=== PATIENT | female | born 1995 | race American Indian/Alaskan Native ===

== ENCOUNTER 2019-06-09 14:37 | Inpatient (IN) | payer MEDICAID ==
[2019-06-09] MEDS ORDERED: LACTATED RINGERS 1,000 ML ONE (16:37)
[2019-06-09] MEDS ORDERED: LACTATED RINGERS 500 ML IV ONE (16:53)
[2019-06-09] MEDS ORDERED: MAGNESIUM SULFATE 4 GM/100 ML BAG IV ONE (17:00)
[2019-06-09] MEDS ORDERED: hydrALAZINE 20 MG/1 ML INJ IV PRN (17:00)
[2019-06-09] MEDS: MAGNESIUM SULFATE 40GM/1000ML 40 GM/1,000 ML BAG IV SCH (18:16)
--- NOTE | 2019-06-09 18:19 | Ultrasound Report ---
ULTRASOUND BIOPHYSICAL PROFILE AND LIMITED OB ULTRASOUND INDICATION / CLINICAL INFORMATION: Hypertension and well-being. COMPARISON: None available. FINDINGS: BREATHING MOVEMENT = 2 GROSS BODY MOVEMENT = 2 TONE = 2 QUALITATIVE AMNIOTIC FLUID VOLUME = 2 TOTAL BIOPHYSICAL SCORE = 8/8 AMNIOTIC FLUID INDEX (cm) = 8.5 PRESENTATION: Cephalic. HEART RATE (beats per minute): 141 through 148. IMPRESSION: 1. biophysical profile = 01/27 2. STONE 8.5 cm Signer Name: Shun Padgett MD Signed: 06/09/2019 6:15 PM Workstation Name: [id number]
[2019-06-09 18:40] LABS: Alanine Aminotransferase 15 units/L (7-56); Uric Acid 7.8 mg/dL (3.5-7.6)
[2019-06-09 18:42] LABS: Hematocrit 40.5 % (30.3-42.9); Hemoglobin 13.4 gm/dl (10.1-14.3); Mean Corpuscular HGB Conc 33 % (30-34); Mean Corpuscular Volume 93 fl (79-97); Red Blood Count 4.35 M/mm3 (3.65-5.03); Red Cell Distribution Width 14.2 % (13.2-15.2)
[2019-06-09 19:13] LABS: Platelet Count 147 K/mm3 (140-440)
[2019-06-09 19:16] LABS: Bacteria,Urine 1+ /HPF (Negative); Bilirubin,Urine NEG (Negative); Blood,Urine MOD (Negative); Color,Urine Straw (Yellow); Urobilinogen,Urine < 2.0 mg/dL (<2.0)
[2019-06-09] MEDS: ACETAMINOPHEN 325 MG TAB PO PRN (20:57)
[2019-06-10] MEDS: LACTATED RINGERS 1,000 ML IV SCH ×2 (02:36→20:31)
--- NOTE | 2019-06-10 07:32 | History and Physical Report ---
History of Present Illness Date of examination: 06/10/19 Date of admission: 06/09/2019 Chief complaint: Was admitted for evaluation and management of preeclampsia. History of present illness: Gestation at 37 wks. Was sent in from the office for concerning BPs. Past History - Obstetrical History Expected Date of Delivery: 07/02/19 Actual Gestation: 36 Week(s) 6 Day(s) : 2 Medications and Allergies Allergies Allergy/AdvReac Type Severity Reaction Status Date / Time No Known Allergies Allergy Unverified 06/09/19 16:07 Home Medications Medication Instructions Recorded Confirmed Last Taken Type Vitamin 1 tab PO DAILY 06/09/19 06/09/19 06/08/19 History Active Meds: Active Medications Acetaminophen (Tylenol) 650 mg PO Q4H PRN PRN Reason: Pain MILD(1-3)/Fever >100.5/VILLEGAS Last Admin: 06/09/19 20:57 Dose: 650 mg Documented by: Hydralazine HCl (Apresoline) 20 mg IV Q30MIN PRN PRN Reason: Blood Pressure Last Admin: 06/09/19 18:14 Dose: 20 mg Documented by: Magnesium Sulfate (Magnesium Sulfate 40gm/1000ml) 40 gm in 1,000 mls @ 50 mls/hr IV DIRECT [place] Last Infusion: 06/10/19 02:36 Dose: 1 gm/hr, 25 mls/hr Documented by: Lactated Ringer's (Lactated Ringers) 1,000 mls @ 125 mls/hr IV DIRECT [place] Last Admin: 06/10/19 02:36 Dose: 125 mls/hr Documented by: Labetalol HCl (Labetalol) 200 mg PO Q8HR [place] Last Admin: 06/10/19 07:25 Dose: 200 mg Documented by: Review of Systems All systems: negative - Vital Signs Vital signs: Vital Signs Pulse BP 79 160/112 06/09/19 15:31 06/09/19 15:31 Temp Pulse Resp BP Pulse Ox 97.8 F 82 14 134/85 97 06/10/19 04:25 06/10/19 07:27 06/10/19 04:25 06/10/19 07:26 06/10/19 07:27 - Physical Exam Lungs: Positive: Normal air movement Abdomen: Positive: normal appearance, soft, distention. Negative: tenderness, guarding Extremities: Positive: normal Deep Tendon Reflex Grade: Normal +2 - Obstetrical FHR: category 1 Results Result Diagrams: 06/09/19 17:59 06/09/19 17:59 Abnormal lab results 06/09/19 06/10/19 06/10/19 Range/Units 17:59 00:26 05:24 Uric Acid 7.8 H (3.5-7.6) mg/dL Magnesium 7.00 H 6.80 H (1.7-2.3) mg/dL Lactate Dehydrogenase 272 H (91-180) units/L All other labs normal. Assessment and Plan - Patient Problems (1) with 36 to 37 weeks completed gestation Current Visit: Yes Status: Acute (2) Pre-eclampsia Current Visit: Yes Status: Acute Plan to address problem: Patient was stabilized since admission with hydralazine and labetalol and MgSO4. BPP 8/8 as of 06/09/2019. Delivery at this stage is under consideration and will be discussed with STANISLAV.
--- NOTE | 2019-06-10 10:16 | Progress Note ---
Assessment and Plan - Patient Problems (1) 36 weeks gestation of Current Visit: Yes Status: Acute (2) Pre-eclampsia Current Visit: Yes Status: Acute Qualifiers: Trimester: third trimester Qualified Code(s): O14.93 - Unspecified pre- eclampsia, third trimester Plan to address problem: Continue magnesium sulfate therapy Continue Labetalol 200mg PO TID Continue serial magnesium levels, strict I&Os and hourly DTRs Subjective - Subjective Date of service: 06/10/19 Principal diagnosis: IUP @ 36w6d, Pre-eclampsia Interval history: 23yo G 2 P 0 0 1 0 @ 36w6d admitted yesterday from [facility] for BP management. Initial BPs were 160/112, 147/110, 162/110 and 171/107. PIH labs UA 7.8(H), LDH 272(H), AST 23, ALT 15. 24hr urine pending. Diagnosis of pre-eclampsia made. Magnesium sulfate and antihypertensive therapy. Per APA recommendation, for continued severe range BPs or NR behavior, delivery recommended. Current BPs stable: 134/88, 109/70, 104/65/117/69. On Labetalol 200mg PO TID. Patient re ports headache but denies visual disturbances or RUQ pain. Magnesium level 6.8. Adequate urine output. Reflexes 3+. Dr. Castle notified. APA recommendation about delivery discussed with patient & partner at the bedside as well as the patient's mom and partner's mom over the phone. The pt's mom wants IOL withheld for now since her BPs are stable. Will discuss plan of care and patient's/family's preference with Dr. Castle. Patient reports: movement normal, no loss of fluid, no vaginal bleeding, no contractions Objective - Vital Signs Vital Signs: Vital Signs - 12hr 06/09/19 06/09/19 06/09/19 22:12 22:17 22:22 Temperature Pulse Rate 90 82 87 Respiratory Rate Blood Pressure O2 Sat by Pulse 98 98 99 Oximetry 06/09/19 06/09/19 06/09/19 22:27 22:31 22:32 Temperature Pulse Rate 86 84 86 Respiratory Rate Blood Pressure 108/66 O2 Sat by Pulse 98 98 Oximetry 06/09/19 06/09/19 06/09/19 22:37 22:42 22:47 Temperature Pulse Rate 86 85 92 H Respiratory Rate Blood Pressure O2 Sat by Pulse 98 98 99 Oximetry 06/09/19 06/09/19 06/09/19 22:52 22:57 23:02 Temperature Pulse Rate 86 87 84 Respiratory Rate Blood Pressure 117/70 O2 Sat by Pulse 98 98 99 Oximetry 06/09/19 06/09/19 06/09/19 23:07 23:12 23:17 Temperature Pulse Rate 88 88 88 Respiratory Rate Blood Pressure O2 Sat by Pulse 99 99 99 Oximetry 06/09/19 06/09/19 06/09/19 23:22 23:27 23:31 Temperature Pulse Rate 87 85 83 Respiratory Rate Blood Pressure 123/78 O2 Sat by Pulse 99 98 Oximetry 06/09/19 06/09/19 06/09/19 23:32 23:37 23:42 Temperature Pulse Rate 84 87 89 Respiratory Rate Blood Pressure O2 Sat by Pulse 98 99 99 Oximetry 06/09/19 06/09/19 06/09/19 23:47 23:52 23:53 Temperature Pulse Rate 88 67 85 Respiratory Rate Blood Pressure 121/78 O2 Sat by Pulse 100 84 Oximetry 06/09/19 06/09/19 06/09/19 23:55 23:57 23:59 Temperature Pulse Rate 89 84 89 Respiratory Rate Blood Pressure 121/78 O2 Sat by Pulse 95 91 Oximetry 06/10/19 06/10/19 06/10/19 00:01 00:02 00:07 Temperature Pulse Rate 71 74 74 Respiratory Rate Blood Pressure 136/80 O2 Sat by Pulse 99 98 Oximetry 06/10/19 06/10/19 06/10/19 00:12 00:17 00:20 Temperature 98.1 F Pulse Rate 75 74 Respiratory Rate Blood Pressure O2 Sat by Pulse 98 98 Oximetry 06/10/19 06/10/19 06/10/19 00:22 00:27 00:31 Temperature Pulse Rate 75 81 77 Respiratory Rate Blood Pressure 121/80 O2 Sat by Pulse 97 98 Oximetry 06/10/19 06/10/19 06/10/19 00:32 00:37 00:42 Temperature Pulse Rate 82 76 77 Respiratory Rate Blood Pressure O2 Sat by Pulse 98 98 97 Oximetry 06/10/19 06/10/19 06/10/19 00:47 00:52 00:57 Temperature Pulse Rate 77 75 77 Respiratory Rate Blood Pressure O2 Sat by Pulse 97 97 98 Oximetry 06/10/19 06/10/19 06/10/19 01:01 01:02 01:07 Temperature Pulse Rate 77 77 77 Respiratory Rate Blood Pressure 136/74 O2 Sat by Pulse 97 96 Oximetry 06/10/19 06/10/19 06/10/19 01:12 01:17 01:22 Temperature Pulse Rate 83 76 79 Respiratory Rate Blood Pressure O2 Sat by Pulse 97 96 97 Oximetry 06/10/19 06/10/19 06/10/19 01:27 01:31 01:32 Temperature Pulse Rate 76 78 79 Respiratory Rate Blood Pressure 129/72 O2 Sat by Pulse 96 97 Oximetry 06/10/19 06/10/19 06/10/19 01:37 01:42 01:47 Temperature Pulse Rate 75 77 77 Respiratory Rate Blood Pressure O2 Sat by Pulse 96 97 97 Oximetry 06/10/19 06/10/19 06/10/19 01:52 01:57 02:01 Temperature Pulse Rate 76 75 81 Respiratory Rate Blood Pressure 123/78 O2 Sat by Pulse 96 97 Oximetry 06/10/19 06/10/19 06/10/19 02:02 02:07 02:12 Temperature Pulse Rate 77 79 75 Respiratory Rate Blood Pressure O2 Sat by Pulse 97 98 97 Oximetry 06/10/19 06/10/19 06/10/19 02:17 02:22 02:27 Temperature Pulse Rate 82 80 79 Respiratory Rate Blood Pressure O2 Sat by Pulse 99 98 98 Oximetry 06/10/19 06/10/19 06/10/19 02:31 02:32 02:37 Temperature Pulse Rate 77 79 83 Respiratory Rate Blood Pressure 112/70 O2 Sat by Pulse 99 99 Oximetry 06/10/19 06/10/19 06/10/19 02:42 02:47 02:52 Temperature Pulse Rate 78 82 78 Respiratory Rate Blood Pressure O2 Sat by Pulse 98 98 98 Oximetry 06/10/19 06/10/19 06/10/19 02:57 03:01 03:02 Temperature Pulse Rate 78 77 79 Respiratory Rate Blood Pressure 110/69 O2 Sat by Pulse 97 97 Oximetry 06/10/19 06/10/19 06/10/19 03:07 03:12 03:17 Temperature Pulse Rate 77 77 84 Respiratory Rate Blood Pressure O2 Sat by Pulse 97 97 97 Oximetry 06/10/19 06/10/19 06/10/19 03:22 03:27 03:31 Temperature Pulse Rate 78 78 77 Respiratory Rate Blood Pressure 111/70 O2 Sat by Pulse 97 97 Oximetry 06/10/19 06/10/19 06/10/19 03:32 03:37 03:42 Temperature Pulse Rate 77 79 78 Respiratory Rate Blood Pressure O2 Sat by Pulse 97 97 97 Oximetry 06/10/19 06/10/19 06/10/19 03:47 03:52 03:57 Temperature Pulse Rate 78 82 77 Respiratory Rate Blood Pressure O2 Sat by Pulse 97 97 97 Oximetry 06/10/19 06/10/19 06/10/19 04:01 04:02 04:07 Temperature Pulse Rate 78 76 80 Respiratory Rate Blood Pressure 116/69 O2 Sat by Pulse 97 97 Oximetry 06/10/19 06/10/19 06/10/19 04:12 04:17 04:22 Temperature Pulse Rate 77 78 78 Respiratory Rate Blood Pressure O2 Sat by Pulse 97 97 97 Oximetry 06/10/19 06/10/19 06/10/19 04:25 04:27 04:31 Temperature 97.8 F Pulse Rate 85 80 Respiratory 14 Rate Blood Pressure 121/79 O2 Sat by Pulse 97 Oximetry 06/10/19 06/10/19 06/10/19 04:32 04:37 04:42 Temperature Pulse Rate 81 84 85 Respiratory Rate Blood Pressure O2 Sat by Pulse 98 98 97 Oximetry 06/10/19 06/10/19 06/10/19 04:47 04:52 04:57 Temperature Pulse Rate 82 79 78 Respiratory Rate Blood Pressure O2 Sat by Pulse 99 99 98 Oximetry 06/10/19 06/10/19 06/10/19 05:01 05:02 05:07 Temperature Pulse Rate 79 80 80 Respiratory Rate Blood Pressure 109/70 O2 Sat by Pulse 98 98 Oximetry 06/10/19 06/10/19 06/10/19 05:12 05:17 05:22 Temperature Pulse Rate 86 76 83 Respiratory Rate Blood Pressure O2 Sat by Pulse 98 99 99 Oximetry 06/10/19 06/10/19 06/10/19 05:27 05:32 05:37 Temperature Pulse Rate 82 81 83 Respiratory Rate Blood Pressure O2 Sat by Pulse 99 99 97 Oximetry 06/10/19 06/10/19 06/10/19 05:42 05:46 05:47 Temperature Pulse Rate 80 85 78 Respiratory Rate Blood Pressure O2 Sat by Pulse 98 92 98 Oximetry 06/10/19 06/10/19 06/10/19 05:52 05:57 06:01 Temperature Pulse Rate 77 75 73 Respiratory Rate Blood Pressure 125/85 O2 Sat by Pulse 98 98 Oximetry 06/10/19 06/10/19 06/10/19 06:02 06:07 06:12 Temperature Pulse Rate 74 75 75 Respiratory Rate Blood Pressure O2 Sat by Pulse 98 98 97 Oximetry 06/10/19 06/10/19 06/10/19 06:17 06:22 06:27 Temperature Pulse Rate 74 75 75 Respiratory Rate Blood Pressure O2 Sat by Pulse 97 96 96 Oximetry 06/10/19 06/10/19 06/10/19 06:31 06:32 06:37 Temperature Pulse Rate 72 75 75 Respiratory Rate Blood Pressure 127/79 O2 Sat by Pulse 96 96 Oximetry 06/10/19 06/10/19 06/10/19 06:42 06:47 06:52 Temperature Pulse Rate 75 75 73 Respiratory Rate Blood Pressure O2 Sat by Pulse 96 96 96 Oximetry 06/10/19 06/10/19 06/10/19 06:57 07:01 07:02 Temperature Pulse Rate 74 75 75 Respiratory Rate Blood Pressure 127/82 O2 Sat by Pulse 96 97 Oximetry 06/10/19 06/10/19 06/10/19 07:07 07:12 07:17 Temperature Pulse Rate 78 83 74 Respiratory Rate Blood Pressure O2 Sat by Pulse 97 96 96 Oximetry 06/10/19 06/10/19 06/10/19 07:22 07:25 07:26 Temperature Pulse Rate 75 82 76 Respiratory Rate Blood Pressure 134/85 134/85 O2 Sat by Pulse 96 Oximetry 06/10/19 06/10/19 06/10/19 07:27 07:32 07:37 Temperature Pulse Rate 82 75 81 Respiratory Rate Blood Pressure 126/76 O2 Sat by Pulse 97 99 99 Oximetry 06/10/19 06/10/19 06/10/19 07:42 07:47 07:52 Temperature Pulse Rate 77 76 76 Respiratory Rate Blood Pressure O2 Sat by Pulse 99 99 99 Oximetry 06/10/19 06/10/19 06/10/19 07:57 08:02 08:03 Temperature Pulse Rate 77 76 74 Respiratory Rate Blood Pressure 112/71 O2 Sat by Pulse 99 98 Oximetry 06/10/19 06/10/19 06/10/19 08:07 08:12 08:17 Temperature Pulse Rate 76 76 84 Respiratory Rate Blood Pressure O2 Sat by Pulse 98 98 98 Oximetry 06/10/19 06/10/19 06/10/19 08:22 08:23 08:27 Temperature Pulse Rate 75 78 80 Respiratory Rate Blood Pressure 120/70 O2 Sat by Pulse 98 98 Oximetry 06/10/19 06/10/19 06/10/19 08:31 08:32 08:33 Temperature Pulse Rate 87 82 82 Respiratory Rate Blood Pressure 117/69 O2 Sat by Pulse 97 94 Oximetry 06/10/19 06/10/19 06/10/19 08:37 08:42 08:47 Temperature Pulse Rate 83 81 80 Respiratory Rate Blood Pressure O2 Sat by Pulse 98 97 98 Oximetry 06/10/19 06/10/19 06/10/19 08:52 08:57 09:02 Temperature Pulse Rate 79 87 79 Respiratory Rate Blood Pressure 104/65 O2 Sat by Pulse 97 97 98 Oximetry 06/10/19 06/10/19 06/10/19 09:07 09:12 09:17 Temperature Pulse Rate 78 83 78 Respiratory Rate Blood Pressure O2 Sat by Pulse 97 98 97 Oximetry 06/10/19 06/10/19 06/10/19 09:22 09:27 09:31 Temperature Pulse Rate 78 77 78 Respiratory Rate Blood Pressure 109/70 O2 Sat by Pulse 97 97 Oximetry 06/10/19 06/10/19 06/10/19 09:32 09:37 09:42 Temperature Pulse Rate 78 85 86 Respiratory Rate Blood Pressure O2 Sat by Pulse 97 97 96 Oximetry 06/10/19 06/10/19 06/10/19 09:47 09:52 09:57 Temperature Pulse Rate 89 82 88 Respiratory Rate Blood Pressure O2 Sat by Pulse 96 97 97 Oximetry 06/10/19 06/10/19 10:02 10:07 Temperature Pulse Rate 82 87 Respiratory Rate Blood Pressure 134/88 O2 Sat by Pulse 97 97 Oximetry - Exam FHR: auscultation normal, category 1 FHR comments: baseline 120, minimal variability, no accels, no decels Uterine Contraction Monitor Mode: External Cervical Dilatation: 1 Cervical Effacement Percentage: 30 station: -3 Uterine Contraction Pattern: Absent Extremities: normal Deep Tendon Reflex Grade: Normal but brisk +3 - Labs Labs: Abnormal Labs 06/09/19 06/10/19 06/10/19 17:59 00:26 05:24 Uric Acid 7.8 H Magnesium 7.00 H 6.80 H Lactate Dehydrogenase 272 H Laboratory Results - last 24 hr 06/09/19 06/09/19 06/09/19 17:59 17:59 17:59 WBC 7.8 RBC 4.35 Hgb 13.4 Hct 40.5 MCV 93 MCH 31 MCHC 33 RDW 14.2 Plt Count 147 Creatinine 1.2 Estimated GFR > 60 Uric Acid 7.8 H Magnesium AST 23 ALT 15 Lactate Dehydrogenase 272 H Urine Color Straw Urine Turbidity Clear Urine pH 7.0 Ur Specific [place] 1.008 Urine Protein 100 mg/dl Urine Glucose (UA) Neg Urine Ketones Neg Urine Blood Mod Urine Nitrite Neg Urine Bilirubin Neg Urine Urobilinogen < 2.0 Ur Leukocyte Esterase Neg Urine WBC (Auto) 1.0 Urine RBC (Auto) 2.0 U Epithel Cells (Auto) 1.0 Urine Bacteria (Auto) 1+ Blood Type Antibody Screen 06/09/19 06/10/19 06/10/19 19:40 00:26 05:24 WBC RBC Hgb Hct MCV MCH MCHC RDW Plt Count Creatinine Estimated GFR Uric Acid Magnesium 7.00 H 6.80 H AST ALT Lactate Dehydrogenase Urine Color Urine Turbidity Urine pH Ur Specific [place] Urine Protein Urine Glucose (UA) Urine Ketones Urine Blood Urine Nitrite Urine Bilirubin Urine Urobilinogen Ur Leukocyte Esterase Urine WBC (Auto) Urine RBC (Auto) U Epithel Cells (Auto) Urine Bacteria (Auto) Blood Type O POSITIVE Antibody Screen Negative
[2019-06-10] MEDS ORDERED: ONDANSETRON 4 MG/2 ML INJ IV PRN (10:28)
[2019-06-10] MEDS ORDERED: LIDOCAINE (2%) 20 MG/1 ML VIAL 20 ML MDV INFILTRATI ONE (21:11)
[2019-06-10] MEDS ORDERED: ePHEDrine SULFATE 50 MG/1 ML INJ IV PRN (21:11)
[2019-06-10] MEDS ORDERED: TERBUTALINE 1 MG/1 ML INJ SUB-Q PRN (21:11)
--- NOTE | 2019-06-10 21:45 | Progress Note ---
Assessment and Plan A: at 35 3/7 weeks. Preeclampsia with severe features. P: Magnesium Sulfate. Celestone for FLM. Continuous EFM. Cervical ripening and induction of labor. Discussed with patient risks and benefits of cervical ripening and induction of labor. Patient consented to IOL. Consulted with Dr. Castle re: this patient and he states he agrees with induction of labor due to preeclampsia with severe features. Subjective - Subjective Date of service: 06/10/19 Principal diagnosis: IUP @ 35w3d, Pre-eclampsia Interval history: Assumed care of patient. at 35 3/7 weeks. Preelampsia with severe features. Patient reports headache. BPs are elevated, some in severe range. Patient is receiving po Labetalol. Patient reports good movement. She denies LOF or VB. Patient reports: movement normal, no loss of fluid, no vaginal bleeding, no contractions Objective - Vital Signs Vital Signs: Vital Signs - 12hr 06/10/19 06/10/19 06/10/19 09:42 09:47 09:52 Temperature Pulse Rate 86 89 82 Respiratory Rate Blood Pressure Blood Pressure [Left] O2 Sat by Pulse 96 96 97 Oximetry 06/10/19 06/10/19 06/10/19 09:57 10:02 10:07 Temperature Pulse Rate 88 82 87 Respiratory Rate Blood Pressure 134/88 Blood Pressure [Left] O2 Sat by Pulse 97 97 97 Oximetry 06/10/19 06/10/19 06/10/19 10:12 10:17 10:20 Temperature Pulse Rate 84 83 82 Respiratory 18 Rate Blood Pressure Blood Pressure 124/88 [Left] O2 Sat by Pulse 98 99 98 Oximetry 06/10/19 06/10/19 06/10/19 10:22 10:27 10:31 Temperature Pulse Rate 85 86 84 Respiratory Rate Blood Pressure 130/89 Blood Pressure [Left] O2 Sat by Pulse 98 98 Oximetry 06/10/19 06/10/19 06/10/19 10:32 10:37 10:42 Temperature Pulse Rate 87 83 87 Respiratory Rate Blood Pressure Blood Pressure [Left] O2 Sat by Pulse 97 98 98 Oximetry 06/10/19 06/10/19 06/10/19 10:47 10:52 10:57 Temperature Pulse Rate 89 82 89 Respiratory Rate Blood Pressure Blood Pressure [Left] O2 Sat by Pulse 96 99 97 Oximetry 12/06/10/19 06/10/19 11:00 11:02 11:07 Temperature Pulse Rate 88 79 81 Respiratory 16 Rate Blood Pressure 130/83 Blood Pressure 130/83 [Left] O2 Sat by Pulse 94 94 100 Oximetry 06/10/19 06/10/19 06/10/19 11:12 11:17 11:22 Temperature Pulse Rate 85 82 84 Respiratory Rate Blood Pressure Blood Pressure [Left] O2 Sat by Pulse 99 99 99 Oximetry 06/10/19 06/10/19 06/10/19 11:27 11:30 11:31 Temperature Pulse Rate 83 81 81 Respiratory 16 Rate Blood Pressure 126/83 Blood Pressure 126/83 [Left] O2 Sat by Pulse 99 98 Oximetry 06/10/19 06/10/19 06/10/19 11:32 11:37 11:42 Temperature Pulse Rate 83 85 84 Respiratory Rate Blood Pressure Blood Pressure [Left] O2 Sat by Pulse 98 99 99 Oximetry 06/10/19 06/10/19 06/10/19 11:47 11:52 11:57 Temperature Pulse Rate 82 83 83 Respiratory Rate Blood Pressure Blood Pressure [Left] O2 Sat by Pulse 99 99 99 Oximetry 06/10/19 06/10/19 06/10/19 12:00 12:01 12:02 Temperature Pulse Rate 82 83 Respiratory 18 Rate Blood Pressure 127/83 Blood Pressure [Left] O2 Sat by Pulse 99 99 Oximetry 06/10/19 06/10/19 06/10/19 12:07 12:12 12:16 Temperature Pulse Rate 82 75 59 L Respiratory Rate Blood Pressure Blood Pressure [Left] O2 Sat by Pulse 97 98 91 Oximetry 06/10/19 06/10/19 06/10/19 12:17 12:22 12:27 Temperature Pulse Rate 76 77 69 Respiratory Rate Blood Pressure Blood Pressure [Left] O2 Sat by Pulse 96 99 99 Oximetry 06/10/19 06/10/19 06/10/19 12:30 12:31 12:32 Temperature 97.8 F Pulse Rate 71 71 78 Respiratory 20 Rate Blood Pressure 134/91 Blood Pressure 134/91 [Left] O2 Sat by Pulse 98 98 Oximetry 06/10/19 06/10/19 06/10/19 12:37 12:42 12:47 Temperature Pulse Rate 72 78 78 Respiratory Rate Blood Pressure Blood Pressure [Left] O2 Sat by Pulse 97 98 98 Oximetry 06/10/19 06/10/19 06/10/19 12:52 12:57 13:01 Temperature Pulse Rate 72 75 75 Respiratory Rate Blood Pressure 147/96 Blood Pressure [Left] O2 Sat by Pulse 98 97 Oximetry 06/10/19 06/10/19 06/10/19 13:02 13:07 13:12 Temperature Pulse Rate 82 78 77 Respiratory Rate Blood Pressure Blood Pressure [Left] O2 Sat by Pulse 98 95 97 Oximetry 06/10/19 06/10/19 06/10/19 13:17 13:22 13:25 Temperature Pulse Rate 77 81 84 Respiratory Rate Blood Pressure Blood Pressure [Left] O2 Sat by Pulse 98 97 92 Oximetry 06/10/19 06/10/19 06/10/19 13:27 13:31 13:32 Temperature Pulse Rate 73 76 83 Respiratory Rate Blood Pressure 127/89 Blood Pressure [Left] O2 Sat by Pulse 99 100 Oximetry 06/10/19 06/10/19 06/10/19 13:37 13:42 13:47 Temperature Pulse Rate 79 78 82 Respiratory Rate Blood Pressure Blood Pressure [Left] O2 Sat by Pulse 99 97 97 Oximetry 06/10/19 06/10/19 06/10/19 13:52 13:57 14:02 Temperature Pulse Rate 82 79 75 Respiratory Rate Blood Pressure 128/84 Blood Pressure [Left] O2 Sat by Pulse 98 98 98 Oximetry 06/10/19 06/10/19 06/10/19 14:07 14:12 14:17 Temperature Pulse Rate 76 77 75 Respiratory Rate Blood Pressure Blood Pressure [Left] O2 Sat by Pulse 99 99 99 Oximetry 06/10/19 06/10/19 06/10/19 14:22 14:27 14:31 Temperature Pulse Rate 76 76 78 Respiratory Rate Blood Pressure 122/78 Blood Pressure [Left] O2 Sat by Pulse 99 99 Oximetry 06/10/19 06/10/19 06/10/19 14:32 14:37 14:42 Temperature Pulse Rate 76 76 83 Respiratory Rate Blood Pressure Blood Pressure [Left] O2 Sat by Pulse 99 99 98 Oximetry 06/10/19 06/10/19 06/10/19 14:47 14:52 14:57 Temperature Pulse Rate 71 70 72 Respiratory Rate Blood Pressure Blood Pressure [Left] O2 Sat by Pulse 97 97 97 Oximetry 06/10/19 06/10/19 06/10/19 15:01 15:02 15:07 Temperature Pulse Rate 86 72 69 Respiratory Rate Blood Pressure 125/83 Blood Pressure [Left] O2 Sat by Pulse 98 98 Oximetry 06/10/19 06/10/19 06/10/19 15:12 15:17 15:22 Temperature Pulse Rate 74 73 81 Respiratory Rate Blood Pressure Blood Pressure [Left] O2 Sat by Pulse 97 97 98 Oximetry 06/10/19 06/10/19 06/10/19 15:27 15:32 15:37 Temperature Pulse Rate 73 80 75 Respiratory Rate Blood Pressure 129/86 Blood Pressure [Left] O2 Sat by Pulse 97 98 98 Oximetry 06/10/19 06/10/19 06/10/19 15:42 15:47 15:52 Temperature Pulse Rate 77 81 88 Respiratory Rate Blood Pressure Blood Pressure [Left] O2 Sat by Pulse 98 96 98 Oximetry 06/10/19 06/10/19 06/10/19 15:57 16:01 16:02 Temperature Pulse Rate 85 81 81 Respiratory Rate Blood Pressure 122/85 Blood Pressure [Left] O2 Sat by Pulse 96 98 Oximetry 06/10/19 06/10/19 06/10/19 16:07 16:12 16:17 Temperature Pulse Rate 86 85 80 Respiratory Rate Blood Pressure Blood Pressure [Left] O2 Sat by Pulse 98 99 99 Oximetry 06/10/19 06/10/19 06/10/19 16:22 16:27 16:31 Temperature Pulse Rate 83 89 73 Respiratory Rate Blood Pressure Blood Pressure [Left] O2 Sat by Pulse 99 98 93 Oximetry 06/10/19 06/10/19 06/10/19 16:36 16:37 16:42 Temperature Pulse Rate 84 90 Respiratory Rate Blood Pressure Blood Pressure [Left] O2 Sat by Pulse 92 99 99 Oximetry 06/10/19 06/10/19 06/10/19 16:47 16:52 16:57 Temperature Pulse Rate 84 83 85 Respiratory Rate Blood Pressure Blood Pressure [Left] O2 Sat by Pulse 99 99 99 Oximetry 06/10/19 06/10/19 06/10/19 17:01 17:02 17:07 Temperature Pulse Rate 80 83 86 Respiratory Rate Blood Pressure 121/72 Blood Pressure [Left] O2 Sat by Pulse 99 99 Oximetry 06/10/19 06/10/19 06/10/19 17:12 17:17 17:22 Temperature Pulse Rate 84 84 81 Respiratory Rate Blood Pressure Blood Pressure [Left] O2 Sat by Pulse 100 99 99 Oximetry 06/10/19 06/10/19 06/10/19 17:27 17:31 17:32 Temperature Pulse Rate 85 81 82 Respiratory Rate Blood Pressure 122/74 Blood Pressure [Left] O2 Sat by Pulse 99 99 Oximetry 06/10/19 06/10/19 06/10/19 17:37 17:42 17:47 Temperature Pulse Rate 85 84 81 Respiratory Rate Blood Pressure Blood Pressure [Left] O2 Sat by Pulse 99 100 99 Oximetry 06/10/19 06/10/19 06/10/19 17:52 17:57 18:01 Temperature Pulse Rate 83 85 85 Respiratory Rate Blood Pressure 127/83 Blood Pressure [Left] O2 Sat by Pulse 99 99 Oximetry 06/10/19 06/10/19 06/10/19 18:02 18:07 18:12 Temperature Pulse Rate 84 84 86 Respiratory Rate Blood Pressure Blood Pressure [Left] O2 Sat by Pulse 99 99 99 Oximetry 06/10/19 06/10/19 06/10/19 18:17 18:22 18:27 Temperature Pulse Rate 90 89 79 Respiratory Rate Blood Pressure Blood Pressure [Left] O2 Sat by Pulse 99 99 99 Oximetry 06/10/19 06/10/19 06/10/19 18:31 18:32 18:37 Temperature Pulse Rate 81 88 84 Respiratory Rate Blood Pressure 133/84 Blood Pressure [Left] O2 Sat by Pulse 100 99 Oximetry 06/10/19 06/10/19 06/10/19 18:42 18:47 18:52 Temperature Pulse Rate 78 89 85 Respiratory Rate Blood Pressure Blood Pressure [Left] O2 Sat by Pulse 100 100 99 Oximetry 06/10/19 06/10/19 06/10/19 18:57 19:01 19:02 Temperature Pulse Rate 78 78 81 Respiratory Rate Blood Pressure 124/83 Blood Pressure [Left] O2 Sat by Pulse 99 100 Oximetry 06/10/19 06/10/19 06/10/19 19:07 19:12 19:17 Temperature Pulse Rate 85 87 86 Respiratory Rate Blood Pressure Blood Pressure [Left] O2 Sat by Pulse 99 97 97 Oximetry 06/10/19 06/10/19 06/10/19 19:22 19:27 19:32 Temperature Pulse Rate 88 86 88 Respiratory Rate Blood Pressure Blood Pressure [Left] O2 Sat by Pulse 97 97 99 Oximetry 06/10/19 06/10/19 06/10/19 19:33 19:37 19:42 Temperature Pulse Rate 82 85 81 Respiratory Rate Blood Pressure 170/96 Blood Pressure [Left] O2 Sat by Pulse 98 99 Oximetry 06/10/19 06/10/19 06/10/19 19:47 19:52 19:57 Temperature Pulse Rate 89 83 77 Respiratory Rate Blood Pressure Blood Pressure [Left] O2 Sat by Pulse 100 99 99 Oximetry 06/10/19 06/10/19 06/10/19 20:01 20:02 20:07 Temperature Pulse Rate 83 89 86 Respiratory Rate Blood Pressure 153/97 Blood Pressure [Left] O2 Sat by Pulse 100 99 Oximetry 06/10/19 06/10/19 06/10/19 20:12 20:17 20:22 Temperature Pulse Rate 85 83 86 Respiratory Rate Blood Pressure Blood Pressure [Left] O2 Sat by Pulse 100 98 98 Oximetry 06/10/19 06/10/19 06/10/19 20:27 20:28 20:31 Temperature Pulse Rate 85 86 86 Respiratory Rate Blood Pressure 153/97 134/99 Blood Pressure [Left] O2 Sat by Pulse 98 Oximetry 06/10/19 06/10/19 06/10/19 20:32 20:37 20:42 Temperature Pulse Rate 81 74 84 Respiratory Rate Blood Pressure Blood Pressure [Left] O2 Sat by Pulse 100 82 L 93 Oximetry 06/10/19 06/10/19 06/10/19 20:47 21:01 21:31 Temperature Pulse Rate 85 77 86 Respiratory Rate Blood Pressure 131/95 163/88 Blood Pressure [Left] O2 Sat by Pulse 99 Oximetry - Exam Abdomen: Present: normal appearance, soft. Absent: distention, tenderness, guarding, rigidity Uterus: Present: normal, fundal height above umbilicus. Absent: tenderness Uterine Contraction Monitor Mode: External Cervical Dilatation: 1.5 Cervical Effacement Percentage: 70 station: 0 Uterine Contraction Pattern: Absent - Labs Labs: Abnormal Labs 06/09/19 06/10/19 06/10/19 17:59 00:26 05:24 Uric Acid 7.8 H Magnesium 7.00 H 6.80 H Lactate Dehydrogenase 272 H Ur Total Protein 24 Hr Urine Total Protein 06/10/19 06/10/19 06/10/19 10:10 19:00 Unknown Uric Acid Magnesium 6.20 H 5.90 H Lactate Dehydrogenase Ur Total Protein 24 Hr 3861.00 H Urine Total Protein 143 H Laboratory Results - last 24 hr 06/10/19 06/10/19 06/10/19 00:26 05:24 10:10 Magnesium 7.00 H 6.80 H 6.20 H Urine Total Volume Ur Total Protein 24 Hr Urine Total Protein 06/10/19 06/10/19 19:00 Unknown Magnesium 5.90 H Urine Total Volume 2700 Ur Total Protein 24 Hr 3861.00 H Urine Total Protein 143 H
[2019-06-10] MEDS ORDERED: OXYTOCIN 20 UNIT/1000ML DRIP 20 UNITS/1,000 ML BAG IV SCH (22:00)
[2019-06-10] MEDS ORDERED: BETAMET ACET/BETAMET NA PH 6 MG/ML INJ 5 ML MDV IM SCH (22:00)
[2019-06-10] MEDS ORDERED: OXYTOCIN DRIP 30 UNITS/500 ML BAG IV SCH (22:00)
[2019-06-10 22:18] LABS: Hematocrit 37.4 % (30.3-42.9); Hemoglobin 12.6 gm/dl (10.1-14.3); Mean Corpuscular HGB Conc 34 % (30-34); Mean Corpuscular Volume 93 fl (79-97); Red Blood Count 4.03 M/mm3 (3.65-5.03); Red Cell Distribution Width 14.7 % (13.2-15.2)
[2019-06-10 22:19] LABS: Platelet Count 166 K/mm3 (140-440)
[2019-06-11] MEDS: LACTATED RINGERS 1,000 ML IV SCH (06:12)
--- NOTE | 2019-06-11 11:11 | Event Note ---
Date: 06/11/19 Will keep EDC of 07/02/19 giving her EGA of 37 weeks today. chart has a note saying she was 11.2 weeks on 12/13- which gives EDC of 07/02. Plus pt has been told during the preg that 07/02 is her EDC. BP - stable. See vitals in EMR FHT- No significant decel, mod LTV VE- /-2, AROM clear. A/P- Stable with IOL for preeclampsia. Resume pitocin. Expectant care. Cont mag.
--- NOTE | 2019-06-11 12:38 | Event Note ---
Date: 06/11/19 Pit at 4Mu was tolerated well by fetus with ctxs around q4-5. Once pit went up to 6mU, pt with decels after each ctx. Mod LTV still noted though. Accels still noted. Decels resolved once pt turned off. Options d/w, in particular the concern that if she is having decels this early in the labor/induction process, that they are likely going to worsen later on. But FHT is stable currently without pit. Pt opts to try pit again and if the problem recurs, will likely be needed. All questions answered.
[2019-06-11] MEDS ORDERED: METOCLOPRAMIDE 10 MG/2 ML INJ IV ONE (14:04)
[2019-06-11] MEDS ORDERED: FAMOTIDINE 20 MG/2 ML INJ IV ONE (14:04)
[2019-06-11] MEDS ORDERED: BICITRA ORAL LIQD 30ML PO ONE (14:04)
--- NOTE | 2019-06-11 14:10 | Event Note ---
Date: 06/11/19 Pitocin was turned off again as pt had decels after ctxs after the pitocin was restarted. VE- no change. Still /%. As a result of NRFHT remote from delivery, pt agreed to and consented LTCS. Risks, benefits and alternatives d/w pt. All questions answered.
[2019-06-11] MEDS ORDERED: HYDROmorphone 1 MG/1 ML INJ IV PRN ×2 (14:11)
[2019-06-11] MEDS ORDERED: PROMETHAZINE 25 MG TAB PO PRN (14:11)
[2019-06-11] MEDS ORDERED: ONDANSETRON 4 MG/2 ML INJ IV PRN (14:11)
[2019-06-11] MEDS ORDERED: NALOXONE 0.4 MG/1 ML INJ IV PRN ×2 (14:11→16:01)
[2019-06-11] MEDS ORDERED: PROMETHAZINE 25 MG RECT SUPP PR PRN (14:11)
--- NOTE | 2019-06-11 14:11 | Anesthesia Consultation ---
Anesthesia Consult and Med Hx Date of service: 06/11/19 - Airway Anesthetic Teeth Evaluation: Good ROM Head & Neck: Adequate Mental/Hyoid Distance: Adequate Mallampati Class: Class II Intubation Access Assessment: Good - Pulmonary Exam CTA: Yes - Cardiac Exam Cardiac Exam: RRR - Pre-Operative Health Status ASA Pre-Surgery Classification: ASA2, Emergency Proposed Anesthetic Plan: Spinal - Pulmonary Hx Asthma: No - Cardiovascular System Hx Hypertension: Yes (PIH/Pre-E) - Other Systems Hx Alcohol Use: Yes (social use)
--- NOTE | 2019-06-11 14:12 | Anesthesia Day of Surgery ---
Anesthesia Day of Surgery - Day of Surgery Patient Examined: Yes Patient H&P Reviewed: Yes Patient is NPO: Yes
[2019-06-11] MEDS ORDERED: DEXMEDETOMIDINE 200 MCG/2 ML VIAL IV ONE (14:22)
[2019-06-11] MEDS ORDERED: fentaNYL-BUPIV 2 MCG/ML-0.125% 200 MCG/100 ML BAG EPIDURAL SCH (15:00)
[2019-06-11] MEDS ORDERED: ceFAZolin/Water 2 GM/20 ML 2 GM/20 ML SYRINGE IV NR (15:00)
[2019-06-11] MEDS ORDERED: OXYTOCIN 20 UNIT/1000ML DRIP 20 UNITS/1,000 ML BAG IV SCH ×2 (15:00→17:00)
[2019-06-11] MEDS ORDERED: LACTATED RINGERS 1,000 ML IV SCH (15:00)
[2019-06-11] MEDS ORDERED: ceFAZolin/STERILE WATER 2 GM/20 ML SYRINGE IV ONE (15:12)
[2019-06-11] MEDS ORDERED: PHENYLEPHRINE/NS 1,000 MCG/10 ML SYRINGE (OR USE) IV ONE (15:19)
[2019-06-11] MEDS ORDERED: WATER FOR IRRIG STERILE 1,500 ML BOTTLE IR ONE (15:25)
[2019-06-11] MEDS ORDERED: SODIUM CHLORIDE 0.9% IRR 1,500 ML BOTTLE IR ONE (15:25)
[2019-06-11] MEDS ORDERED: KETOROLAC 30 MG/1 ML INJ ONE (15:39)
[2019-06-11] MEDS ORDERED: OXYTOCIN 10 UNIT/1 ML INJ ONE (15:39)
[2019-06-11] MEDS ORDERED: LANOLIN/ZINC/DIMETHICONE (LANSINOH) 7 GM TP PRN (16:01)
[2019-06-11] MEDS ORDERED: WITCH HAZEL/ GLYCERIN PAD TP PRN (16:01)
[2019-06-11] MEDS ORDERED: D5W/LACTATED RINGERS 1,000 ML IV SCH (17:00)
--- NOTE | 2019-06-11 17:11 | Procedure Note ---
OB Delivery Note - Delivery Date of Delivery: 06/11/19 Surgeon: ELENA SCHAFFER Estimated blood loss: other (800cc) - Section Preop diagnosis: nonreassuring FHR tracing (NR FHT remote from delivery. Also preeclamptic) Postop diagnosis: same section procedure: primary low transverse Disposition: PACU Complications: none Narrative: PT is a at 37 weeks taken for LTCS for NRFHT remote from delivery. Anesthesia spinal Findings: patient had a viable male with Apgars of 8 and 9. Clear fluid noted. Patient had an occult cord next to the head. Normal uterus tubes and ovaries. Procedure patient was taken to the operating room and prepped and draped in usual fashion. Pfannenstiel skin incision was made and carried down to the underlying fascia. Fascia was incised and the incision was extended bilaterally. Rectus fascia then dissected off the rectus muscle both superiorly and inferiorly. The peritoneum was identified tented up and entered. Peritoneal incision was extended superiorly and inferiorly with good visualization of bladder. Bladder blade was placed. Uterine incision was made and extended bilaterally. Baby was delivered in the usual fashion without difficulty. Cord was clamped and cut and handed off to the waiting team. The uterus was then exteriorized and cleared of all clots and debris. Uterus is closed with 0 Vicryl in a running locked fashion followed by second imbricating layer of 0 Vicryl. An additional [id number] stitch was needed and then good hemostasis noted. Uterus tubes and ovaries returned to the abdominal cavity. Gutters were cleared of all clots and debris. Pelvis was well irrigated. Interceed placed over the uterine incision and over the lower uterine segment in the midline. Rectus fascia was reapproximated with 0 Vicryl in a running fashion. Subcutaneous tissues was irrigated and skin was closed with 4-0 Vicryl in a subcuticular fashion. Procedure concluded at this point. Patient tolerated the procedure well. All instrument and lap counts were correct. Patient taken to the recovery room in stable condition. - Infant A at 1 minute: 8 at 5 minutes: 9 Infant Gender: Male
[2019-06-11] MEDS: KETOROLAC 30 MG/1 ML INJ IV PRN (20:00)
[2019-06-12 05:29] LABS: Hematocrit 35.4 % (30.3-42.9); Hemoglobin 11.5 gm/dl (10.1-14.3)
[2019-06-12] MEDS: KETOROLAC 30 MG/1 ML INJ IV PRN (07:18)
--- NOTE | 2019-06-12 09:37 | Progress Note ---
Assessment and Plan A: /postop day 1 S/P primary low transverse section. Preeclampsia with severe features. P: Continue Magnesium Sulfate. Continue current management. Subjective - Subjective Date of service: 06/12/19 Principal diagnosis: /postop day 1 S/P primary low transverse section Interval history: /postop day 1 S/P primary low transverse section; preeclampsia with severe features. Magnesium Sulfate continues. Patient's BPs are controlled on Labetalol. Patient denies headache, visual disturbance, cough, shortness of breath, chest pain, dizziness, leg pain, or heavy vaginal bleeding. Patient is passing gas. Still has Gonzalez catheter which is draining well. Patient reports: appetite normal, pain well controlled, flatus, no nauseated : doing well Objective - Vital Signs Latest vital signs: Vital Signs Temp Pulse Resp BP BP Pulse Ox 06/12/19 09:13 78 118/74 06/12/19 08:13 78 133/88 06/12/19 07:22 76 133/89 06/12/19 07:13 75 134/90 06/12/19 06:13 76 143/90 06/12/19 05:13 79 143/103 06/12/19 04:36 87 78 L 06/12/19 04:35 83 99 06/12/19 04:30 81 99 06/12/19 04:25 78 99 06/12/19 04:20 77 99 06/12/19 04:15 81 98 06/12/19 04:13 80 141/86 06/12/19 04:10 82 100 06/12/19 04:05 79 100 06/12/19 04:00 87 100 06/12/19 03:55 75 99 06/12/19 03:51 75 130/75 89 06/12/19 03:50 89 06/11/19 22:24 98.2 F 18 06/11/19 22:12 79 146/90 06/11/19 21:47 93 H 98 06/11/19 21:42 85 98 06/11/19 21:37 85 145/92 99 06/11/19 21:32 88 98 06/11/19 21:27 91 H 98 06/11/19 21:22 90 98 06/11/19 21:20 86 93 06/11/19 21:17 86 100 12/21/19 21:12 86 99 21/19 21:07 83 98 21/19 21:02 87 97 21/19 20:57 83 99 21/19 20:52 84 97 21/19 20:47 83 98 21/19 20:42 83 99 21/19 20:38 85 156/72 1221/19 20:37 83 99 21/19 20:32 84 99 21/19 20:27 82 99 21/19 20:22 86 98 21/19 20:17 85 99 06/11/19 20:12 86 99 21/19 20:07 82 99 21/19 20:02 86 98 21/19 19:57 83 100 21/19 19:52 80 99 21/19 19:47 80 99 21/19 19:42 84 100 21/19 19:37 77 123/76 99 21/19 19:32 78 99 06/11/19 19:27 77 100 06/11/19 19:22 81 99 06/11/19 19:17 79 100 06/11/19 19:12 80 100 21/19 19:10 86 87 06/11/19 19:07 81 99 06/11/19 19:02 81 100 06/11/19 18:57 72 100 06/11/19 18:52 75 100 06/11/19 18:47 80 99 21/19 18:42 79 99 06/11/19 18:37 79 141/83 100 21/19 18:32 81 99 21/19 18:27 76 100 21/19 18:22 77 99 21/19 18:17 73 100 21/19 18:12 79 99 21/19 18:07 77 100 1221/19 18:02 82 100 21/19 17:57 79 99 21/19 17:52 81 100 21/19 17:47 77 100 21/19 17:42 79 100 1221/19 17:38 87 125/73 1221/19 17:37 80 99 1221/19 17:15 76 14 98/59 98 21/19 17:00 78 12 99/60 99 12/21/19 16:45 74 12 109/56 98 06/11/19 16:30 72 14 103/58 100 06/11/19 16:25 79 12 104/57 99 06/11/19 16:20 73 14 98/56 99 06/11/19 16:16 97.8 F 73 12 99/55 99 06/11/19 14:31 81 154/94 06/11/19 14:01 78 143/84 06/11/19 13:45 89 100 06/11/19 13:40 80 100 06/11/19 13:35 83 100 06/11/19 13:32 83 134/82 06/11/19 13:30 88 100 06/11/19 13:25 82 100 06/11/19 13:20 77 100 06/11/19 13:15 84 100 06/11/19 13:10 85 100 06/11/19 13:05 80 100 06/11/19 13:01 81 137/87 06/11/19 13:00 76 100 06/11/19 12:31 80 126/86 06/11/19 12:04 98.5 F 17 06/11/19 12:02 75 126/77 06/11/19 11:31 78 143/94 06/11/19 11:01 88 137/94 06/11/19 10:59 82 100 06/11/19 10:54 85 100 06/11/19 10:49 78 100 06/11/19 10:44 83 100 06/11/19 10:39 84 100 06/11/19 10:34 84 100 06/11/19 10:31 83 134/84 06/11/19 10:29 83 100 06/11/19 10:24 81 100 06/11/19 10:19 80 100 06/11/19 10:14 80 100 06/11/19 10:09 80 100 06/11/19 10:04 92 H 98 06/11/19 10:01 82 131/89 06/11/19 09:59 81 98 06/11/19 09:54 83 99 06/11/19 09:49 79 100 06/11/19 09:44 77 97 06/11/19 09:39 79 100 Intake and Output 06/11/19 06/12/19 06/12/19 23:59 07:59 15:59 Intake Total 940.349 Output Total 1850 3350 Balance -909.651 -3350 Intake: IV 940.349 D5lr 1,000 ml @ 125 mls/ 248.333 hr IV [facility] Rx#: [id number] MAGNESIUM SULFATE 40GM/ 117.016 1000ML 40 gm In 1,000 ml @ 2 GM/HR 50 mls/hr IV [facility] Rx#:[id number] PITOCin/NS 20 UNIT/1000ML 150 DRIP 20 units In 1,000 ml @ 125 mls/hr IV [facility] Rx#:[id number] Output: Urine 1850 3350 Indwelling Catheter 1600 3350 Other: Total, Output Amount 300 1400 - Exam Cardiovascular: Present: Regular rate, Normal S1, Normal S2, No murmurs Lungs: Present: Clear to auscultation Abdomen: Present: normal appearance, soft, normal bowel sounds. Absent: distention, tenderness, guarding, rigidity Uterus: Present: normal, firm, fundal height below umbilicus. Absent: bogginess, tenderness Extremities: Present: normal. Absent: tenderness, edema Incision: Present: normal, dry, intact, dressed - Labs Labs: Abnormal lab results 06/11/19 06/11/19 06/12/19 Range/Units 14:23 20:51 01:59 Magnesium 6.50 H 5.90 H 6.40 H (1.7-2.3) mg/dL
[2019-06-12] MEDS: ACETAMINOPHEN 325 MG TAB PO PRN (12:59)
[2019-06-12] MEDS: MAGNESIUM SULFATE 40GM/1000ML 40 GM/1,000 ML BAG IV SCH (13:01)
[2019-06-12] MEDS: oxyCODONE /ACETAMINOPHEN 5-325MG TAB PO PRN (18:21)
[2019-06-12] MEDS: IBUPROFEN 800 MG TAB PO PRN (22:19)
[2019-06-13] MEDS ORDERED: TETANUS,DIPH,PERTUSS(ACELL) VACCINE 0.5 ML SYRINGE IM ONE (06:00)
[2019-06-13] MEDS: IBUPROFEN 800 MG TAB PO PRN ×2 (06:20→20:55)
[2019-06-13] MEDS: oxyCODONE /ACETAMINOPHEN 5-325MG TAB PO PRN ×3 (08:08→22:23)
--- NOTE | 2019-06-13 10:16 | Progress Note ---
Assessment and Plan - Patient Problems (1) S/P primary low transverse Current Visit: Yes Status: Acute Plan to address problem: POD 2 - stable Continue routine postop orders Discharge to home 06/14/19 Follow up at [facility] as needed or in 1 week for incision and BP check (2) Pre-eclampsia Current Visit: Yes Status: Acute Qualifiers: Trimester: third trimester Qualified Code(s): O14.93 - Unspecified pre- eclampsia, third trimester Plan to address problem: Completed magnesium sulfate therapy Continue Labetalol 200mg PO TID Subjective - Subjective Date of service: 06/13/19 Principal diagnosis: POD #2; s/p Primary LTCS, Pre-eclampsia Interval history: see H&P, OB Progress Notes, Event Notes, OB Delivery Procedure Note and PP/[facility] Progress Note Patient reports: appetite normal, voiding normally, pain well controlled, flatus, ambulating normally, other (denies headache, visual disturbances or RUQ pain), no dizzy ambulation, no bowel movement [place]: doing well, other (breast and bottle feeding) Objective - Vital Signs Latest vital signs: Vital Signs Temp Pulse Resp BP BP Pulse Ox 06/13/19 08:04 98.0 F 80 20 107/70 96 06/13/19 06:48 18 06/13/19 06:20 18 06/13/19 06:19 71 143/95 06/13/19 04:00 98.7 F 76 18 121/74 06/13/19 01:00 98 F 69 18 122/78 06/12/19 23:19 18 06/12/19 22:20 81 145/85 06/12/19 22:19 18 06/12/19 22:15 98.7 F 78 16 145/95 06/12/19 19:21 18 06/12/19 18:33 142/87 06/12/19 17:00 98.6 F 78 14 154/99 100 06/12/19 15:13 81 129/78 06/12/19 14:13 82 135/87 06/12/19 13:13 76 147/95 06/12/19 12:13 79 154/92 06/12/19 11:13 83 129/93 Intake and Output 06/12/19 06/13/19 06/13/19 23:59 07:59 15:59 Intake Total 300 420 Balance 300 420 Intake: Intake, Free Water 300 420 Other: # Voids Void 1 1 - Exam Cardiovascular: Present: Regular rate Lungs: Present: Clear to auscultation Abdomen: Present: normal appearance, soft Vulva: both: normal Uterus: Present: normal, firm, fundal height below umbilicus Extremities: Present: normal Incision: Present: normal, dry, intact Comments: scant lochia
--- NOTE | 2019-06-13 10:22 | Discharge Summary ---
Providers - Providers Date of Admission: 06/11/19 14:45 Date of discharge: 06/14/19 Attending physician: ANNA KATZ MD Primary care physician: ANNA KATZ MD Hospitalization Reason for admission: induction of labor, IUP at term, other (Elevated BPs) Delivery: Procedure: primary low transverse Episiotomy: none Laceration: none Incision: normal, dry, intact Other procedures: none complications: none Discharge diagnosis: IUP at term delivered baby: male Hospital course: Complicated by pre-eclampsia Condition at discharge: Stable Disposition: [id number] TO HOME OR SELFCARE - Discharge Diagnoses (1) S/P primary low transverse Status: Acute (2) Pre-eclampsia Status: Acute Qualifiers: Trimester: third trimester Qualified Code(s): O14.93 - Unspecified pre- eclampsia, third trimester Comment: Continue taking Labetalol 200mg by mouth every 8 hours Plan - Discharge Medications Prescriptions: labetaloL [Labetalol 200mg TAB] 200 mg PO Q8HR #90 tablet Ibuprofen [Motrin 800 MG tab] 800 mg PO Q6H PRN #30 tablet PRN Reason: Pain, Mild (1-3) - Provider Discharge Summary Activity: routine, no sex for 6 weeks, no heavy lifting 4 weeks, no strenuous exercise Diet: routine Instructions: routine Additional instructions: [] Smoking cessation referral if applicable(refer to patient education folder for contact #) [] Refer to [facility]'s [facility] Booklet Call your doctor immediately for: * Fever > 100.5 * Heavy vaginal bleeding ( >1 pad per hour) * Severe persistent headache * Shortness of breath * Reddened, hot, painful area to leg or breast * Drainage or odor from incision. * Keep incision clean and dry at all times and follow doctor's instructions regarding bathing/showering - Follow up plan Follow up: ANNA KATZ MD [Primary Care Provider] - 7 Days (Follow up at [facility] as needed or in 1 week for incision and BP check) Forms: [facility] Discharge Summary
[2019-06-14] MEDS: IBUPROFEN 800 MG TAB PO PRN (06:22)
[2019-06-14 13:09] VITALS: BP 133/93
== END 2019-06-14 15:30 | disposition home or self-care (01) | DRG 766 ==
LOC: TRG 14:37 → LD 14:38 → TRG 06-11 14:41 → LD 06-11 14:45 → OB 06-12 17:02
PROVIDERS: ADMIT Obstetrics & Gynecology; ATTEND Obstetrics & Gynecology
PROC: 10D00Z1 Extraction of Products of Conception, Low, Open Approach (ICD-10-PCS; principal; 2019-06-11)
PROC: 3E0234Z Introduction of Serum, Toxoid and Vaccine into Muscle, Percutaneous Approach (ICD-10-PCS; 2019-06-13)
DX: O14.14 Severe pre-eclampsia complicating childbirth (principal); O16.4 Unspecified maternal hypertension, complicating childbirth; O99.314 Alcohol use complicating childbirth; O76 Abnormality in fetal heart rate and rhythm complicating labor and delivery; Z37.0 Single live birth; Z3A.36 36 weeks gestation of pregnancy; Z23 Encounter for immunization
CPT/HCPCS: 36415; 76815; 76819; 81001; 82565; 83615; 83735; 84156; 84450; 84460; 84550; 85014; 85018; 85027; 86850; 86900; 86901; 90715; G0378; C1765; J0360; J0690; J0702; J1885; J2370; J2405; J2590; J2765; J3475; J3490; J7120; J7121